=== PATIENT | female | born 1985 ===

== ENCOUNTER 2021-10-29 06:08 | Day surgery (SDC) | payer OTHER ==
[~2021-10-29] VITALS: Ht 165.1 cm; Wt 105.2 kg
[~2021-10-29 06:08] MED LIST: SYNTHROID150 MCG PO
[2021-10-29] MEDS ORDERED: IBU600 MG PO (11:07)
== END 2021-10-29 18:35 | disposition home or self-care (01) ==
LOC: CIR.AMB 06:08
PROVIDERS: ATTEND Obstetrics & Gynecology Gynecology
DX: N84.0 Polyp of corpus uteri (principal); Z20.822 Contact with and (suspected) exposure to COVID-19; E03.9 Hypothyroidism, unspecified